=== PATIENT | female | born 1990 | race Caucasian/White ===

== ENCOUNTER 2017-05-28 18:25 | Emergency (ER) | payer OTHER ==
[~2017-05-28] VITALS: Ht 162.6 cm; Wt 69.4 kg
[~2017-05-28 18:25] MED LIST: XANAX0.5 MG PO; ZOFRAN ODT8 MG PO
[2017-05-28 18:52] LABS: HEMATOCRIT 40.7 % (36.0-46.0); MCH 30.3 PG (29.0-34.0); MCHC 34.4 G/DL (30.0-36.0); MCV 88.1 FL (83-99); MEAN PLAT.VOLUME 9.8 uM^3 (9.5-12.4); PLATELET COUNT 291 K/uL (156-360); RBC DIS.WIDTH-CV 12.6 % (11.8-14.6); RBC DIS.WIDTH-SD 40.3 % (39-53); RED BLOOD COUNT 4.62 M/uL (3.80-5.20); WHITE BLOOD COUNT 10.5 K/uL (4.1-10.2)
[2017-05-28] MEDS ORDERED: MOTRIN600 MG PO (20:15)
[2017-05-28] MEDS ORDERED: ZOFRAN4 MG PO (20:15)
[2017-05-28 20:48] VITALS: BP 106/69
== END 2017-05-28 20:49 | disposition home or self-care (01) ==
LOC: EME 18:25
DX: O03.4 Incomplete spontaneous abortion without complication (principal); R42 Dizziness and giddiness
CPT/HCPCS: 81003; 84702; 85027; 99281; 99284

== ENCOUNTER → 2018-03-08 | Outpatient (CLI) | payer OTHER ==
[~2018-03-08] VITALS: Ht 162.6 cm; Wt 78.0 kg
[~2018-03-08] MED LIST changes: +MOTRIN600 MG PO; +PRENATAL TABLE1 EAC3 PO; +VITAFOL-OB+DHA1 EACH PO; +ZANTAC150 MG PO; +ZOFRAN4 MG PO
[2018-03-08 17:00] VITALS: BP 105/60
== END | disposition home or self-care (01) ==
LOC: IVINF 16:30
DX: Z34.83 Encounter for supervision of other normal pregnancy, third trimester (principal); Z31.82 Encounter for Rh incompatibility status; Z3A.28 28 weeks gestation of pregnancy; Z67.11 Type A blood, Rh negative
CPT/HCPCS: 96372; J2790